=== PATIENT | female | born 1955 | race Asian ===

== ENCOUNTER 2016-07-29 10:25 | Emergency (ER) | payer OTHER ==
[2016-07-29 10:35] VITALS: TEMP 36.4
[2016-07-29 10:54] VITALS: O2SAT 98
[2016-07-29] MEDS ORDERED: MXT150 PO (11:10)
--- NOTE | 2016-07-29 11:29 | EMERGENCY ROOM VISIT NOTE ---
History Report prepared by Kurt: Malissa Dos Santos Under the Supervision of: Dr. Radha Masterson M.D. First contact with patient: 10:56 Chief Complaint: IRREGULAR HEARTBEAT Stated Complaint: IRREGULAR HEARTBEAT Nursing Triage Summary: Pt primary language Makenzie. Pt daughter at bedside reports she will assist in translating for pt. 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 pt has hx of an irregular heart beat. pt takes medication daily for this condition and she ran out of medication last week. History of Present Illness The patient is a 61 year old female who presents to the Emergency Room with complaints of palpitations since last night. The patient presents to the ED with her daughter as the patient is visiting her daughter from [place]. Per patient's daughter who is translating for the patient, the patient has a history of an irregular heart rate for 2 years. Her daughter believes that she may have had PVCs. She has been on mexiletine in the past but is not on a medication at this point. Upon arrival, her symptoms have resolved. Denies chest pain, nausea, or other complaints. She does not smoke or drink. She denies caffeine use in the past few days. Source of History: family Onset: last night Position: other (global) Timing: resolved Associated Symptoms: No chest pain, No nausea Review of Systems See HPI for pertinent positives & negatives. A total of 10 systems reviewed and were otherwise negative. Past Medical & Surgical Medical Problems: (1) Irregular heart rate Family History No pertinent family history stated. Social History Smoking Status: Never Smoker Alcohol Use: none Marital Status: Housing Status: lives with family Current/Historical Medications Scheduled Metoprolol Tartrate (Lopressor) (Lopressor), 0.5 TAB PO BID Mexiletine Hcl (Mexiletine Hcl), Unknown Dose PO DAILY Allergies Coded Allergies: No Known Allergies (Unverified , 07/29/16) Physical Exam Vital Signs Date Time Temp Pulse Resp B/P Pulse Ox O2 Delivery O2 Flow Rate FiO2 07/29/16 13:57 72 16 115/71 99 07/29/16 12:21 71 18 112/74 98 Room Air 07/29/16 11:18 65 07/29/16 11:13 65 18 118/76 98 Room Air 07/29/16 10:54 98 Room Air 07/29/16 10:51 98 Room Air 07/29/16 10:35 36.4 68 20 122/73 96 Room Air Physical Exam Vital signs reviewed. General: Well-appearing 61 year old female, in no significant distress. HEENT: No scleral icterus, PERRLA, neck supple. Atraumatic. Cardiovascular: Regular rate and rhythm, no extra sounds. Pulmonary: Clear to auscultation bilaterally, normal work of breathing. Abdomen: Soft, nontender, nondistended, positive bowel sounds. Musculoskeletal: Atraumatic, no peripheral edema. Neurologic: Patient awake alert and oriented x 3, full strength in all 4 extremities. Cranial nerves 2 through 12 grossly intact. Skin: Warm, dry, no rash Medical Decision & Procedures ER Provider Diagnostic Interpretation: Radiology results as stated below per my review and radiologist interpretation: SINGLE VIEW CHEST CLINICAL HISTORY: Palpitations. FINDINGS: An AP, portable, upright chest radiograph is obtained. No prior studies are available for comparison at the time of dictation. The cardiomediastinal silhouette is unremarkable. There are low lung volumes with bibasilar atelectasis and mild elevation of the right hemidiaphragm. No focal airspace consolidation or pleural effusion is identified. No pneumothorax is seen. The bony thorax is grossly intact. IMPRESSION: Low lung volumes with no acute cardiopulmonary abnormality. Electronically signed by: Dwaine Monahan M.D. 07/29/2016 12:51 PM Dictated Date/Time: 07/29/2016 12:50 PM Laboratory Results 07/29/16 11:00 Red Blood Count 4.82, Mean Corpuscular Volume 91.5, Mean Corpuscular Hemoglobin 31.7, Mean Corpuscular Hemoglobin Concent 34.7, Mean Platelet Volume 10.1, Neutrophils (%) (Auto) 60.4, Lymphocytes (%) (Auto) 29.3, Monocytes (%) (Auto) 8.6, Eosinophils (%) (Auto) 1.3, Basophils (%) (Auto) 0.2, Neutrophils # (Auto) 3.73, Lymphocytes # (Auto) 1.81, Monocytes # (Auto) 0.53, Eosinophils # (Auto) 0.08, Basophils # (Auto) 0.01 07/29/16 11:00 Test 07/29/16 11:00 07/29/16 12:21 White Blood Count 6.17 K/uL (4.8-10.8) Red Blood Count 4.82 M/uL (4.2-5.4) Hemoglobin 15.3 g/dL (12.0-16.0) Hematocrit 44.1 % (37-47) Mean Corpuscular Volume 91.5 fL (80-100) Mean Corpuscular Hemoglobin 31.7 pg (25-34) Mean Corpuscular Hemoglobin Concent 34.7 g/dl (32-36) Platelet Count 167 K/uL (130-400) Mean Platelet Volume 10.1 fL (7.4-10.4) Neutrophils (%) (Auto) 60.4 % Lymphocytes (%) (Auto) 29.3 % Monocytes (%) (Auto) 8.6 % Eosinophils (%) (Auto) 1.3 % Basophils (%) (Auto) 0.2 % Neutrophils # (Auto) 3.73 K/uL (1.4-6.5) Lymphocytes # (Auto) 1.81 K/uL (1.2-3.4) Monocytes # (Auto) 0.53 K/uL (0.11-0.59) Eosinophils # (Auto) 0.08 K/uL (0-0.5) Basophils # (Auto) 0.01 K/uL (0-0.2) RDW Standard Deviation 40.9 fL (36.4-46.3) RDW Coefficient of Variation 12.3 % (11.5-14.5) Immature Granulocyte % (Auto) 0.2 % Immature Granulocyte # (Auto) 0.01 K/uL (0.00-0.02) Anion Gap 7.0 mmol/L (3-11) Estimated GFR () 71.3 Estimated GFR (Non- 61.5 BUN/Creatinine Ratio 12.1 (10-20) Calcium Level 8.6 mg/dl (8.5-10.1) Magnesium Level 2.2 mg/dl (1.8-2.4) Total Bilirubin 0.5 mg/dl (0.2-1) Direct Bilirubin < 0.1 mg/dl (0-0.2) Aspartate Amino Transf (AST/SGOT) 19 U/L (15-37) Alanine Aminotransferase (ALT/SGPT) 41 U/L (12-78) Alkaline Phosphatase 66 U/L (45-117) Total Creatine Kinase 85 U/L (26-192) Creatine Kinase MB < 0.5 ng/ml (0.5-3.6) Creatine Kinase MB Ratio (0-3.0) Total Protein 6.9 gm/dl (6.4-8.2) Albumin 3.6 gm/dl (3.4-5.0) Bedside Troponin I 0.000 ng/ml (0-0.045) Laboratory results per my review. ECG Indication: palpitations Rate (beats per minute): 69 Rhythm: sinus rhythm Findings: PVC, other (QTc 394) ED Course 1114: Past medical records reviewed. The patient was evaluated in room B11. A complete history and physical examination was performed. 1340: Upon reevaluation, the patient was resting comfortably. I discussed findings with the patient's daughter. She verbalized agreement of the treatment plan. The patient was discharged home. Medical Decision Differential includes but is not limited to a-fib, PVCs, PACs, medication effect , medication withdrawal, stimulants. This patient was evaluated and appeared to be in no significant distress. IV access was obtained and laboratory work was drawn. The patient was placed on the cardiac/vascular sonographer and found to be in a normal sinus rhythm. EKG reveals no evidence of acute ischemia. There is evidence of PVC. The patient was previously on a sodium channel shaun in [place]. She states this medication made her jittery. Laboratory work is fairly unrevealing, cardiac enzymes are negative. Electrolytes are normal. She has had recurrent symptoms of palpitations or be placed on a low-dose beta shaun, 12.5 mg twice daily. The patient was encouraged to see her physician immediately upon return home and approximately 5 weeks. She will return to the ER for worsening of symptoms or any medical concerns. Impression Primary Impression: PVCs (premature ventricular contractions) Additional Impression: Palpitations Scribe Attestation The scribe's documentation has been prepared under my direction and personally reviewed by me in its entirety. I confirm that the note above accurately reflects all work, treatment, procedures, and medical decision making performed by me. Departure Information Dispostion Home / Self-Care Prescriptions Metoprolol Tartrate (Lopressor) (Lopressor) 25 Mg Tab 0.5 TAB PO BID for 90 Days, #90 TAB 1 Refill Prov: Radha Masterson M.D. 07/29/16 Referrals No Doctor, Assigned (PCP) Patient Instructions My [facility] Additional Instructions Diagnosis: PVCs, palpitations Metoprolol 12.5 mg TWICE daily. Avoid caffeine, nicotine. Follow-up with your physician upon return home to [place]. Return to the emergency department for worsening of symptoms or any medical concerns. Problem Qualifiers
[2016-07-29 12:23] LABS: BASO % 0.2 %; BASO ABS # 0.01 K/uL (0-0.2); COMPLETE YES; EOS % 1.3 %; HEMATOCRIT 44.1 % (37-47); IG% 0.2 %; LYMPH % 29.3 %; LYMPH ABS # 1.81 K/uL (1.2-3.4); MEAN CELL VOLUME 91.5 fL (80-100); MEAN CORPUSCULAR HEMOGLOBIN 31.7 pg (25-34); MEAN CORPUSCULAR HGB CONC 34.7 g/dl (32-36); MEAN PLATELET VOLUME 10.1 fL (7.4-10.4); MONO % 8.6 %; NEUT % 60.4 %; PLATELET COUNT 167 K/uL (130-400); RED BLOOD COUNT 4.82 M/uL (4.2-5.4); WHITE BLOOD COUNT 6.17 K/uL (4.8-10.8)
[2016-07-29 12:31] LABS: BLOOD UREA NITROGEN 12 mg/dl (7-18); BUN/CREATININE RATIO 12.1 (10-20); CALCIUM 8.6 mg/dl (8.5-10.1); CARBON DIOXIDE 29 mmol/L (21-32); CHLORIDE 108 mmol/L (98-107); CREATININE 0.99 mg/dl (0.60-1.20); GLUCOSE 69 mg/dl (70-99); MAGNESIUM 2.2 mg/dl (1.8-2.4); POTASSIUM 3.5 mmol/L (3.5-5.1); SODIUM 144 mmol/L (136-145)
[2016-07-29 12:36] LABS: ALKALINE PHOSPHATASE 66 U/L (45-117); ALT/SGPT 41 U/L (12-78); AST/SGOT 19 U/L (15-37)
--- NOTE | 2016-07-29 12:52 | DIAGNOSTIC IMAGING REPORT ---
SINGLE VIEW CHEST CLINICAL HISTORY: Palpitations. FINDINGS: An AP, portable, upright chest radiograph is obtained. No prior studies are available for comparison at the time of dictation. The cardiomediastinal silhouette is unremarkable. There are low lung volumes with bibasilar atelectasis and mild elevation of the right hemidiaphragm. No focal airspace consolidation or pleural effusion is identified. No pneumothorax is seen. The bony thorax is grossly intact. IMPRESSION: Low lung volumes with no acute cardiopulmonary abnormality. Electronically signed by: Dwaine Monahan M.D. 07/29/2016 12:51 PM Dictated Date/Time: 07/29/2016 12:50 PM
[2016-07-29] MEDS ORDERED: METO25TA56 PO (13:21)
[2016-07-29 13:57] VITALS: BP 115/71; PULSE 72; O2SAT 99
== END 2016-07-29 13:59 | disposition home or self-care (01) ==
LOC: C.EDB 10:29
DX: I49.3 Ventricular premature depolarization (principal); R00.2 Palpitations; Z79.899 Other long term (current) drug therapy